=== PATIENT | female | born 1970 | race Caucasian/White ===

== ENCOUNTER → 2017-04-24 | Outpatient (CLI) | payer BC ==
[2006-09-09 20:32] VITALS: PULSE 60; TEMP 97.5
[~2017-04-24] MED LIST: YAZ 28 3 MG-0.01 TAB PO
== END ==
LOC: MC.RAD 07:40
DX: Z12.31 Encounter for screening mammogram for malignant neoplasm of breast (principal)

== ENCOUNTER → 2018-05-19 | Outpatient (CLI) | payer BC ==
[2006-09-09 20:32] VITALS: PULSE 60; TEMP 97.5
== END ==
LOC: MC.RAD 07:20
DX: Z12.31 Encounter for screening mammogram for malignant neoplasm of breast (principal)

== ENCOUNTER → 2019-07-03 | Outpatient (CLI) | payer BC ==
[2006-09-09 20:32] VITALS: PULSE 60; TEMP 97.5
== END ==
LOC: MC.RAD 07:12
DX: Z12.31 Encounter for screening mammogram for malignant neoplasm of breast (principal)

== ENCOUNTER → 2020-06-30 | Outpatient (CLI) | payer BC ==
[2006-09-09 20:32] VITALS: PULSE 60; TEMP 97.5
== END ==
LOC: MC.RAD 16:56
DX: Z12.31 Encounter for screening mammogram for malignant neoplasm of breast (principal)

== ENCOUNTER → 2021-07-04 | Outpatient (CLI) | payer BC ==
[2006-09-09 20:32] VITALS: PULSE 60; TEMP 97.5
== END ==
LOC: MC.RAD 07:30
DX: Z12.31 Encounter for screening mammogram for malignant neoplasm of breast (principal)

== ENCOUNTER → 2023-08-07 | Outpatient (CLI) | payer BC ==
[2006-09-09 20:32] VITALS: PULSE 60; TEMP 97.5
== END ==
LOC: CANSCHCLI → MC.RAD 07:15
DX: Z12.31 Encounter for screening mammogram for malignant neoplasm of breast (principal)

== ENCOUNTER 2023-08-15 05:58 | Day surgery (SDC) | payer BC ==
[~2023-08-15] VITALS: Ht 172.7 cm; Wt 82.6 kg
[2023-08-15 08:20] VITALS: BP 97/56; PULSE 68; TEMP 97.6
[2023-08-15 08:35] VITALS: BP 106/65; PULSE 72
[2023-08-15 08:50] VITALS: BP 110/60; PULSE 64
--- NOTE | 2023-08-15 09:55 | NUR ---
0820 RETURNS TO ROOM 1 PER CART. AWAKE, ALERT. RESP UNLABORED. AMBULATES TO RECLINER WITH STANDBY ASSIST. DENIES NAUSEA OR ABD PAIN. VITAL SIGNS OBTAINED. CALL LIGHT AT SIDE. 0835 TOLERATES PO JUICE AND MUFFIN WITHOUT NAUSEA 0850 DISCHARGE INSTRUCTIONS REVIEWED. PATIENT VERBALIZES UNDERSTANDING. COPY PROVIDED IN DISCHARGE FOLDER 0846 DR. MAYO HERE TO VISIT WITH PATIENT 0900 DRESSES SELF. IN RECLINER. READY FOR DISCHARGE, AWAITING 'S ARRIVAL 0956 DISCHARGED PER WHEELCHAIR TO PICKUP TRUCK, DRIVEN BY .
[2023-08-15 11:05] VITALS: BP 98/68; PULSE 70; TEMP 97.3
== END 2023-08-15 09:56 | disposition home or self-care (01) ==
LOC: SDCO 05:58
DX: Z12.11 Encounter for screening for malignant neoplasm of colon (principal)
CPT/HCPCS: J2704; J7120

== ENCOUNTER → 2024-08-12 | Outpatient (CLI) | payer BC ==
[2006-09-09 20:32] VITALS: TEMP 97.5
== END ==
LOC: MC.RAD 07:13
DX: Z12.31 Encounter for screening mammogram for malignant neoplasm of breast (principal)